=== PATIENT | male | born 1980 | race Caucasian/White ===

== ENCOUNTER 2017-08-10 18:49 | Inpatient (IN) | payer OTHER ==
[~2017-08-10] VITALS: Ht 175.3 cm; Wt 88.5 kg
[2017-08-10] MEDS ORDERED: METFORMIN HCL500 MG (19:07)
[2017-08-10] MEDS ORDERED: LANTUS SOL100 UNIT/1 (19:07)
[2017-08-10] MEDS ORDERED: IBUPROFEN800 MG (19:08)
[2017-08-10] MEDS ORDERED: CLINDAMYCIN HC300 MG (19:12)
[2017-08-17] MEDS ORDERED: TOPROL XL50 M1 PO (17:12)
[2017-08-17] MEDS ORDERED: Intestinex CAP PO (17:12)
== END 2017-08-17 18:01 | disposition home or self-care (01) | DRG 603 ==
LOC: ER 18:49 → MEDI 08-11 12:17
PROC: BW2FY0Z Computerized Tomography (CT Scan) of Neck using Other Contrast, Unenhanced and Enhanced (ICD-10-PCS; 2017-08-11)
PROC: 0J943ZX Drainage of Right Neck Subcutaneous Tissue and Fascia, Percutaneous Approach, Diagnostic (ICD-10-PCS; principal; 2017-08-13)
DX: L02.11 Cutaneous abscess of neck (principal); L03.221 Cellulitis of neck; E11.65 Type 2 diabetes mellitus with hyperglycemia; I10 Essential (primary) hypertension; F17.210 Nicotine dependence, cigarettes, uncomplicated; B95.61 Methicillin susceptible Staphylococcus aureus infection as the cause of diseases classified elsewhere; L02.13 Carbuncle of neck; R00.2 Palpitations